=== PATIENT | male | born 1950 | race African-American/Black ===

== ENCOUNTER → 2017-01-18 | Outpatient (CLI) | payer MEDICARE, BC ==
[~2017-01-18] MED LIST: ACCU40TA PO; ALLO300T2 PO; FURO40TA PO; LABE200T2 PO; METO2.5T PO; MINO10TA PO; POTA-163 PO; TRAM50TA PO; VERA120T3 PO
[2017-01-18 10:00] LABS: PROTHROMBIN TIME - PATIENT 10.9 SEC (9.8-11.6)
[2017-01-18 10:05] LABS: BLOOD, URINE NEG (NEG); COMMENT (UR) CULT NOT INDICATED; CULTURE IF INDICATED CULT NOT INDICATED; GLUCOSE,URINE NEG (NEG); HYALINE CAST, URINE 1 /lpf (RARE); KETONE, URINE NEG (NEG); NITRITE,URINE NEG (NEG); PH, URINE 6.5 (5.0-8.5); URINE COLOR YELLOW (YELLW/STRAW)
[2017-01-18 10:21] LABS: BASOPHIL % 0.5 % (0.0-2.0); EOSINOPHIL # 0.1 TH/MM3 (0-0.4); EOSINOPHIL % 1.1 % (0.0-4.0); HEMATOCRIT 42.9 % (39.0-51.0); HEMO FLAGS DIFF FINAL; LYMPH % 26.5 % (9.0-44.0); LYMPHOCYTE # 1.8 TH/MM3 (1.0-4.8); MEAN CELL VOLUME 86.8 FL (80.0-100.0); MEAN CORPUSCULAR HEMOGLOBIN 28.2 PG (27.0-34.0); MEAN CORPUSCULAR HGB CONC 32.4 % (32.0-36.0); MONO % 13.3 % (0.0-8.0); NEUT % 58.6 % (16.0-70.0); PLATELET COUNT 224 TH/MM3 (150-450); RED BLOOD COUNT 4.94 MIL/MM3 (4.50-5.90); WHITE BLOOD COUNT 6.7 TH/MM3 (4.0-11.0)
[2017-01-18 10:23] LABS: BICARBONATE 33.3 MEQ/L (21.0-32.0); POTASSIUM 3.2 MEQ/L (3.5-5.1)
--- NOTE | 2017-01-18 16:26 | EKG ---
Date Performed: 01/18/2017 Time Performed: 09:28:18 PTAGE: 66 years EKG: Sinus rhythm WITH FIRST DEGREE AV BLOCK MARKED LEFT AXIS DEVIATION T-WAVE ABNORMALITY, CONSIDER ANTEROLATERAL ISC HEMIA T-WAVE ABNORMALITY, CONSIDER INFERIOR ISCHEMIA ABNORMAL ECG NO PREVIOUS TRACING DOCTOR: Christophe Strickland Interpretating Date/Time 01/18/2017 16:24:56
== END ==
LOC: CPRE 08:21
PROVIDERS: ATTEND Orthopaedic Surgery
DX: Z01.812 Encounter for preprocedural laboratory examination (principal); Z96.652 Presence of left artificial knee joint; M17.12 Unilateral primary osteoarthritis, left knee; M24.562 Contracture, left knee; R94.31 Abnormal electrocardiogram [ECG] [EKG]
CPT/HCPCS: 36415; 80048; 81001; 85025; 85610; 93005

== ENCOUNTER → 2017-01-20 | Day surgery (SDC) | payer MEDICARE, BC ==
--- NOTE | 2017-01-14 14:05 | MH ---
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 HISTORY The patient is a 66-year-old black male who underwent a left total knee arthroplasty in October of this year for a history of osteoarthritis of his left knee associated with a varus deformity and patellofemoral disorder and pain of the left knee. The patient was noted to have tolerated his operative procedure well and his postoperative course was stable thereafter. He was initially maintained in a rehab facility where his initial mobilization was undertaken and he was subsequently transferred to outpatient treatment. When seen in initial followup he was noted to be making slow but steady progress with regards to his rehabilitation for which he was encouraged to continue with his rehab program. In more recent followup when he was approximately three months postop, he was unable to achieve more than 90 degrees of flexion about his left knee. Because of his of limited mobility, a recommendation was made to proceed with a manipulation under anesthesia for which the patient indicated his agreement and currently is being admitted to the hospital in order that the above be accomplished. PAST MEDICAL HISTORY/HOSPITALIZATIONS/SURGERIES In addition to his left total knee arthroplasty have included arthroscopic surgery of his left knee prior to his total knee replacement, laser surgery for his prostate, colonoscopy, and medical management for congestive heart failure. MEDICAL ILLNESSES The patient's medical illnesses include heart disease. MEDICATIONS His current medications - 1. Minoxidil 10 mg daily. 2. Furosemide 40 mg twice daily. 3. Allopurinol 300 mg daily. 4. Verapamil ER 240 mg twice daily. 5. Potassium chloride 10 mEq two tabs each morning, one tab in the evening. 6. Labetalol 200 mg three times daily. 7. Quinapril 40 mg daily. 8. Metolazone 2.5 mg three days per week. 9. Naprosyn 500 mg twice daily. T ALLERGIES THERE NO INDICATED DRUG ALLERGIES. REVIEW OF SYSTEMS He does wear glasses. He denies headache, seizure or syncope. No sinus congestion. There is a history of epistaxis during childhood. Auditory acuity intact, no tinnitus. No bleeding gums or dysphagia. Partial upper dentures. No cough, shortness of breath, upper respiratory infection, pneumonia or tuberculosis. No angina. He is medically managed for hypertension and heart disease. Appetite good. Bowel movements regular. No hepatitis, gallbladder disease, ulcers or hemorrhoids. There is a possibility of urinary tract infection in the past. No kidney stones. He is status post surgery of the prostate. No history of fractures. No psychiatric illness. Remaining review of systems is unremarkable and noncontributory. FAMILY HISTORY 30 years, 58 years of age, she has been undergoing treatment for cancer. One adopted daughter described as being in good health. Family history is positive for hypertension, diabetes, stroke, congestive heart failure and glaucoma. 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 He completed a high school education and one year of college thereafter. Denies active use of tobacco and ethanol. PHYSICAL EXAMINATION Height 5 feet 6 inches, weight 240 pounds. GENERAL: An alert, oriented and responsive 66-year-old black male sitting quietly upon the examination table with no apparent distress. HEAD, EARS, EYES, NOSE AND THROAT: Pupils are equally round and reactive to light. Extraocular movements full. Sclerae are clear. External nares clear. External auditory canals clear. Semi-edentulous in maxillary and mandibular distribution. Mucous membranes pink and moist. Pharynx clear. NECK: Supple. Active range of motion with no significant pain. Carotid pulse palpable bilaterally. Trachea midline. Thyroid without enlargement. LUNGS: Clear to auscultation and percussion. No CVA tenderness. No discomfort throughout the dorsolumbar spine. HEART: Regular rhythm. No murmur or gallop. ABDOMEN: Soft, nontender. Bowel sounds present. RECTAL: Per primary care physician. EXTREMITIES: Left knee: A well-healed surgical wound about the anterior aspect of the left knee with localized scar hypertrophy. No obvious knee effusion. 5-90 degree range of motion with discomfort at the extreme of flexion. No ligamentous instability. Distal sensory grossly intact. Mild antalgic gait. NEUROLOGIC: Cranial nerves II through XII grossly intact. IMPRESSION Flexion contracture of left knee status post total knee arthroplasty. PLAN Manipulation under anesthesia left knee. The nature of the planned surgical procedure, the potential complications and risks associated, the expectations of surgery, and the consent form were thoroughly reviewed with the patient prior his admission to the hospital. Mr. Knowles has indicated his full understanding regarding all of the above and given consent to proceed with treatment as outlined. MD SAILAJA Orellana/ALFONSO /10:03 AM /1:42 PM
[~2017-01-20] VITALS: Ht 169.2 cm; Wt 106.9 kg
[~2017-01-20] MED LIST changes: +CHLORHEXIDINE GLUCONATE 2 % 1 PACK (2 CLOTHS) TOPICAL PRN; +DO NOT ADM ANY ANTICOAGULANT DRUGS PRN; +INSULIN HUMAN REGULAR 1,000 UNITS/10 ML VIAL SQ PRN; +KETOROLAC TROMETHAMINE 60 MG/2 ML (IM) VIAL IM ONE; +LACTATED RINGER'S 1000 ML IV PRN; +METOPROLOL TARTRATE 25 MG TAB PO PRN; +MORPHINE SULFATE 8 MG/ML INJ IM PRN; +ONDANSETRON HCL 4 MG/2 ML VIAL IV PUSH ONE; +POVIDONE IODINE 5% (ANTISEPSIS KIT) 4 APPLICATIONS EACH NARE PRN; +POVIDONE IODINE 7.5% SCRUB 118 ML BOTTLE TOPICAL SCH; +PROMETHAZINE INJ 25 MG/ML VIAL IM PRN; +PROPOFOL 200 MG/20 ML AMP IV ONE; +SODIUM CHLORID 0.9% 500 ML IV PRN; +oxyCODONE/ACETAMINOPHEN 7.5 MG/325 MG TAB PO PRN
[2017-01-20 10:48] VITALS: BP 149/82; PULSE 70; RESP 20; TEMP 99.1; O2SAT 97
--- NOTE | 2017-01-20 12:53 | RADRPT ---
EXAM DATE/TIME: 01/20/2017 12:05 [facility] COMPARISON: No previous studies available for comparison. INDICATIONS : Post manipulation left knee. Prior surgery October 2016 MEDICAL HISTORY : Osteoarthritis. SURGICAL HISTORY : Total knee replacement, left. ENCOUNTER: Initial ACUITY: 1 day PAIN SCORE: 8/10 LOCATION: Left knee FINDINGS: Total knee arthroplasty is in place. The femoral, tibial, and patellar components appear intact. Th ere are no signs of loosening or fracture. Moderate joint effusion is seen CONCLUSION: Intact total knee arthroplasty for technique and moderate joint effusion. Ree Bose MD on January 20, 2017 at 12:50 Board Certified Radiologist. This report was verified electronically.
[2017-01-20 13:31] VITALS: BP 143/79; PULSE 75; RESP 20; TEMP 97; O2SAT 95
--- NOTE | 2017-01-20 21:16 | MP ---
cc: LEIGH TODD DATE OF SURGERY January 20, 2017 PREOPERATIVE DIAGNOSIS Flexion contracture of the left knee status post total knee arthroplasty. POSTOPERATIVE DIAGNOSIS Flexion contracture of the left knee status post total knee arthroplasty. PROCEDURE Manipulation under anesthesia, left knee. SURGEON MD Danilo ANESTHESIA IV sedation. FORMAT Following the induction of satisfactory IV sedation as completed per the Department of Anesthesia examination of the left knee revealed an intact surgical wound about the anterior aspect of the knee. Pre manipulation range of motion assessment noted a 0 to 90 degrees range of motion with an abrupt endpoint. A manual manipulation of the knee was accomplished thereafter with no more than approximately 10 degrees of additional flexion being accomplished with considerable contraction of the knee being appreciated. Concern was appreciated by the undersigned physician that should a more aggressive manipulation be undertaken at this time the increased possibility of complication related to soft tissue disruption or bony fracture would negate any additional manipulation of the knee. Upon completion of same anesthesia was discontinued and the patient thus returned to recovery room in satisfactory condition having tolerated the procedure without difficulty or complication. MD SAILAJA Orellana/EO /11:56 AM /9:14 PM
== END | disposition home or self-care (01) ==
LOC: HSDC 10:08
PROVIDERS: ATTEND Orthopaedic Surgery
DX: T84.89XA Other specified complication of internal orthopedic prosthetic devices, implants and grafts, initial encounter (principal); M24.562 Contracture, left knee; M25.462 Effusion, left knee; M17.12 Unilateral primary osteoarthritis, left knee; Z96.652 Presence of left artificial knee joint
CPT/HCPCS: 01380; 27570; 73560; J1885; J2405; J7120